=== PATIENT | female | born 1945 | race Two or more races ===

== ENCOUNTER 2023-12-13 06:28 | Day surgery (SDC) | payer OTHER ==
[~2023-12-13 06:28] MED LIST: ATORVASTATIN CA10 MG PO; VALSARTAN-HCTZ1 EACH PO
[2023-12-13] MEDS ORDERED: POVIDONE-IODINE 118 ML BOTT TOP ONE (09:24)
[2023-12-13] MEDS ORDERED: KETOROLAC TROMETHAMINE 30 MG VIAL IV ONE (10:30)
== END 2023-12-13 14:50 | disposition home or self-care (01) ==
LOC: CIR.AMB 06:28
PROVIDERS: ATTEND Obstetrics & Gynecology
DX: D25.0 Submucous leiomyoma of uterus (principal); N84.0 Polyp of corpus uteri; N95.0 Postmenopausal bleeding; I10 Essential (primary) hypertension; K59.00 Constipation, unspecified; Z88.1 Allergy status to other antibiotic agents; Z88.0 Allergy status to penicillin